=== PATIENT | male | born 1995 | race Caucasian/White ===

== ENCOUNTER → 2020-04-15 13:34 | Outpatient (CLI) | payer OTHER, SELFPAY ==
--- NOTE | 2020-04-15 13:41 | DI.RAD.S_ITS ---
PROCEDURE: FL SHOULDER INJECTION MR/CT RT INDICATIONS: CHRONIC RIGHT SHOULDER PAIN TECHNIQUE: The indications, alternatives, benefits, risks, and complications of the procedure were explained to the patient. Written informed consent was obtained and placed in the chart. The shoulder was examined fluoroscopically and a site for needle placement chosen for entry into the glenohumeral joint from an anterior approach. The skin was prepped and draped in a sterile fashion, and 1% lidocaine infiltrated from skin down to joint capsule. A spinal needle was inserted into the glenohumeral joint, and a small amount of iodinated contrast media injected to confirm intra-articular placement of the needle tip. This was followed by approximately 12 mL dilute solution of a gadolinium containing MR contrast agent. The needle was removed and a dressing was applied. The patient was given postprocedural instructions and sent to the MR suite for MR imaging. FINDINGS: A single fluoroscopic spot image demonstrates intra-articular location of injected iodinated contrast. IMPRESSION: Successful fluoroscopically guided administration of dilute Gadolinium solution into the shoulder joint for MR arthrogram. Dictated by: Kahlil Fournier M.D. on 04/18/2020 at 9:09 Approved by: Kahlil Fournier M.D. on 04/18/2020 at 9:10
--- NOTE | 2020-04-15 13:42 | DI.MRI.S_ITS ---
PROCEDURE: MR SHOULDER RT W CON INDICATIONS: CHRONIC RIGHT SHOULDER PAIN TECHNIQUE: After the administration of 12 mL of dilute intra-articular Gadolinium contrast, oblique coronal T1 and T2 spin echo with fat saturation, oblique sagittal T1 spin echo with and without fat saturation, oblique sagittal T2 fast spin echo with fat saturation, axial T1 spin echo with fat saturation through the shoulder. COMPARISON: None. FINDINGS: Image quality: Excellent. Rotator cuff: Mild infraspinatus tendinopathy of the footprint without discrete tear. There is low-grade bursal surface fraying at the footprint. Supraspinatus and infraspinatus tendons appear intact. Subscapularis tendon appears intact. No atrophy of the rotator cuff muscles Bones and bursae: No bone marrow contusions or fractures. Mild acromioclavicular joint degeneration. Acromion demonstrates conventional anatomy, without an os acromiale. Trace subacromial-subdeltoid bursitis. Capsule and soft tissues: Labrum: Chronic anteroinferior labral tear is seen with subsequent scarring and hypertrophy. There is adjacent degenerative sclerosis and spurring at the glenoid. Adjacent mild partial thickness chondral loss. Remainder of the labrum appears intact Long head of the biceps tendon intact. The rotator interval appears normal, without fibrosis. Coracohumeral ligament intact. 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 Mild infraspinatus tendinopathy at the footprint with low-grade bursal surface fraying. Dictated by: Ventura Pham M.D. on 04/15/2020 at 16:09 Approved by: Ventura Pham M.D. on 04/15/2020 at 16:15
== END ==
DX: M25.511 Pain in right shoulder (principal); M19.011 Primary osteoarthritis, right shoulder; S43.491A Other sprain of right shoulder joint, initial encounter; G89.29 Other chronic pain
CPT/HCPCS: 23350; 73222; 77002